=== PATIENT | male | born 1975 ===

== ENCOUNTER 2022-03-03 08:28 | Emergency (ER) | payer OTHER ==
[~2022-03-03] VITALS: Ht 188 cm; Wt 91.0 kg
[2022-03-03 08:37] VITALS: BP 120/79
== END 2022-03-03 10:31 | disposition home or self-care (01) ==
LOC: ER 08:28
DX: T59.3X3A Toxic effect of lacrimogenic gas, assault, initial encounter (principal); H92.02 Otalgia, left ear; H57.12 Ocular pain, left eye; Y35.29 Legal intervention involving other gas; Y93.89 Activity, other specified; Y92.89 Other specified places as the place of occurrence of the external cause
CPT/HCPCS: 99283